=== PATIENT | female | born 1990 | race Caucasian/White ===

== ENCOUNTER 2017-03-17 00:13 | Inpatient (IN) | payer BC ==
[~2017-03-17] VITALS: Ht 170.2 cm; Wt 85.0 kg
[~2017-03-17 00:13] MED LIST: BIRTH CONTROL PILL; BUPROPION HCL75 MG PO; CYCLOBENZAPRINE5 MG PO; IMITREX25 MG PO; NAPROXEN500 MG PO; NORCO 5-325 TA1 EACH PO; PREVIFEM1 EACH PO
--- NOTE | 2017-03-18 10:11 | PR ---
[facility] [address] [facility] [place], [place] [address] Signed PP Progress Notes Datetime Report Generated by CPN: 03/18/2017 10:11 SUBJECTIVE: [id number] Pain: Within normal limits Vital Signs: [id number] Vital Signs: Reviewed; Within Normal Limits EXAM: [id number] Cardiovascular: Not Done Respiratory: Not Done Abdomen/Uterus: Abnormal Lochia: Normal Vulva/Perineum: Not Done Breasts: Not Done CVA Tenderness: Not Done Extremities: Normal Incision: Not Applicable Progress: Normal Exam Comments: Fundus firm, NT @ U-1. H/H 12.3/33.1, WBC 17.5, plat 220k IMPRESSION/PLAN/PROCEDURES: [id number] Impression: Normal progression Plan: Continue present management Procedures: None Progress Notes: Doing well. Signing Physician: Ro Miranda MD CC: *Electronically Signed* 03/18/17 1011 RO MIRANDA MD PATIENT NAME: MUNDO HAIDER AILYN PROGRESS NOTE DATE OF : 89 PHYSICIAN: RO MIRANDA MD RPT #: [id number] REPORT IS CONFIDENTIAL AND NOT TO BE RELEASED WITHOUT AUTHORIZATION
--- NOTE | 2017-03-19 08:33 | PR ---
[facility] [address] [facility] [place] [address] Signed PP Progress Notes Datetime Report Generated by CPN: 03/19/2017 08:32 SUBJECTIVE: [id number] Pain: Within normal limits Pain Comments: not much sleep Vital Signs: [id number] Vital Signs: Reviewed; Within Normal Limits EXAM: [id number] Cardiovascular: Not Done Respiratory: Not Done Abdomen/Uterus: Abnormal Lochia: Normal Vulva/Perineum: Not Done Breasts: Not Done CVA Tenderness: Not Done Extremities: Normal Incision: Not Applicable Progress: Normal Exam Comments: Fundus firm, NT @ U-1. IMPRESSION/PLAN/PROCEDURES: [id number] Impression: Normal progression Plan: Discharge Procedures: None Progress Notes: Doing well. She is ready for D/C. Signing Physician: Yu Miranda MD CC: *Electronically Signed* 03/19/1732 YU MIRANDA MD PATIENT NAME: MUNDO HAIDER PROGRESS NOTE DATE OF : 90 PHYSICIAN: YU MIRANDA MD RPT #: [id number] REPORT IS CONFIDENTIAL AND NOT TO BE RELEASED WITHOUT AUTHORIZATION
== END 2017-03-19 13:40 | disposition home or self-care (01) | DRG 775 ==
LOC: FBC 00:13
PROVIDERS: ADMIT Obstetrics & Gynecology
PROC: 10907ZC Drainage of Amniotic Fluid, Therapeutic from Products of Conception, Via Natural or Artificial Opening (ICD-10-PCS; principal; 2017-03-17)
PROC: 0KQM0ZZ Repair Perineum Muscle, Open Approach (ICD-10-PCS; principal; 2017-03-17)
PROC: 3E0R3BZ Introduction of Anesthetic Agent into Spinal Canal, Percutaneous Approach (ICD-10-PCS; principal; 2017-03-17)
PROC: 00HU33Z Insertion of Infusion Device into Spinal Canal, Percutaneous Approach (ICD-10-PCS; principal; 2017-03-17)
PROC: 10E0XZZ Delivery of Products of Conception, External Approach (ICD-10-PCS; principal; 2017-03-17)
DX: O48.0 Post-term pregnancy (principal); Z37.0 Single live birth; Z3A.40 40 weeks gestation of pregnancy; O69.1XX0 Labor and delivery complicated by cord around neck, with compression, not applicable or unspecified; O70.1 Second degree perineal laceration during delivery
CPT/HCPCS: 01960; 36415; 85027; J2590; J2795; J7120

== ENCOUNTER 2020-08-30 10:00 | Inpatient (IN) | payer BC ==
[~2020-08-30] VITALS: Ht 170.2 cm; Wt 76.2 kg
[~2020-08-30 10:00] MED LIST changes: +MOTRIN IB200 MG PO; +WELLBUTRIN XL300 MG PO
--- NOTE | 2020-08-30 17:26 | PR ---
[facility] [address] [place], [place] [address] Signed Progress Notes IP Datetime Report Generated by CPN: 08/30/2020 17:26 PROGRESS NOTES: [id number] Impression: Normal Progression of Labor Procedures: Sterile Vag Exam Plan: Continue Present Management VITAL SIGNS: [id number] Vital Signs: Reviewed; Within Normal Limits EXAM: [id number] Dilatation: 6.0 Effacement: 80 Station: -2 Contractions: q 7 to 12 min MEMBRANES: [id number] Comments: Comfortable after epidural but now nauseated. No change in cervix. Will give Zofran and continue present management. FETUS A: [id number] FHR Baseline: 130 Variability: Moderate 6-25bpm Accelerations: 15X15 Decelerations: None FHR Category: Category I Presentation: Vertex Comments on Fetus A: No evidence of metabolic acidosis FETUS B: [id number] Signing Physician: Yu Miranda MD Copies: ~ *Electronically Signed* 08/30/20 1726 YU MIRANDA MD PATIENT NAME: MUNDO HAIDER PROGRESS NOTE DATE OF : 90 PHYSICIAN: YU MIRANDA MD RPT #: [id number] REPORT IS CONFIDENTIAL AND NOT TO BE RELEASED WITHOUT AUTHORIZATION
--- NOTE | 2020-08-31 08:05 | PR ---
[facility] [address] [facility] [place], [place] [address] Signed PP Progress Notes Datetime Report Generated by JUAN MANUEL: 08/31/2020 08:05 SUBJECTIVE: [id number] Pain: Within Normal Limits Nausea/Vomiting: Denies Vital Signs: [id number] Vital Signs: Reviewed; Within Normal Limits Cardiovascular: Not Done Respiratory: Not Done Abdomen/Uterus: Abnormal Lochia: Normal Vulva/Perineum: Not Done Breasts: Not Done CVA Tenderness: Not Done Extremities: Normal Incision: Not Applicable Progress: Normal Exam Comments: Fundus firm, NT @ U-2. H/H 12.4/36.4, WBC 18.4, plat 260k IMPRESSION/PLAN/PROCEDURES: [id number] Impression: Normal Progression Plan: Continue Present Management Progress Notes: Doing well. Continue present care with probable D/C in am. Signing Physician: Yu Miranda MD Copies: ~ *Electronically Signed* 08/31/20 0805 YU MIRANDA MD PATIENT NAME: MELIZAMUNDO PROGRESS NOTE DATE OF : 90 PHYSICIAN: YU MIRANDA MD RPT #: [id number] REPORT IS CONFIDENTIAL AND NOT TO BE RELEASED WITHOUT AUTHORIZATION
--- NOTE | 2020-09-01 10:38 | PR ---
[facility] [address] [facility] [place], [place] [address] Signed PP Progress Notes Datetime Report Generated by CPN: 09/01/2020 10:38 SUBJECTIVE: [id number] Pain: Within Normal Limits Nausea/Vomiting: Denies Bowel Movement: Yes Vital Signs: [id number] Vital Signs: Reviewed; Within Normal Limits EXAM: Met Cardiovascular: Not Done Respiratory: Not Done Abdomen/Uterus: Normal Lochia: Normal Vulva/Perineum: Not Done Breasts: Not Done CVA Tenderness: Not Done Extremities: Normal Incision: Not Applicable Progress: Normal Exam Comments: Fundus firm, NT @ U-2. H/H 12.4/36.4, WBC 18.4, plat 260k IMPRESSION/PLAN/PROCEDURES: [id number] Impression: Normal Progression Plan: Discharge Procedures: None Progress Notes: Doing well, without complaint, ready to go home. Signing Physician: Barry Pickett MD Copies: ~ *Electronically Signed* 09/01/20 BARRY HOLLEY MD PATIENT NAME: CURTIS HAIDERMICHAELA ROBERTSON PROGRESS NOTE DATE OF : 89 PHYSICIAN: BARRY PICKETT MD RPT #: [id number] REPORT IS CONFIDENTIAL AND NOT TO BE RELEASED WITHOUT AUTHORIZATION
== END 2020-09-01 10:40 | disposition home or self-care (01) | DRG 806 ==
LOC: FBC 10:00
PROVIDERS: ADMIT Obstetrics & Gynecology; ATTEND Obstetrics & Gynecology
PROC: 10E0XZZ Delivery of Products of Conception, External Approach (ICD-10-PCS; principal; 2020-08-30)
PROC: 00HU33Z Insertion of Infusion Device into Spinal Canal, Percutaneous Approach (ICD-10-PCS; 2020-08-30)
PROC: 3E0R3BZ Introduction of Anesthetic Agent into Spinal Canal, Percutaneous Approach (ICD-10-PCS; 2020-08-30)
PROC: 0UQGXZZ Repair Vagina, External Approach (ICD-10-PCS; 2020-08-30)
PROC: 10907ZC Drainage of Amniotic Fluid, Therapeutic from Products of Conception, Via Natural or Artificial Opening (ICD-10-PCS; 2020-08-30)
DX: O99.344 Other mental disorders complicating childbirth (principal); O71.4 Obstetric high vaginal laceration alone; Z37.0 Single live birth; O99.354 Diseases of the nervous system complicating childbirth; F32.89 Other specified depressive episodes; Z3A.39 39 weeks gestation of pregnancy; G43.909 Migraine, unspecified, not intractable, without status migrainosus
CPT/HCPCS: 01960; 36415; 85027; A9270; J2001; J2405; J2590; J2765; J2795; J3010